=== PATIENT | female | born 1970 | race Caucasian/White ===

== ENCOUNTER 2016-03-04 09:23 | Emergency (ER) | payer OTHER ==
[~2016-03-04] VITALS: Ht 157.5 cm; Wt 56.0 kg
[2016-03-04] MEDS ORDERED: PROAIR RESPICL90 MCG IH (11:42)
[2016-03-04] MEDS ORDERED: VENLAFAXINE H37.5 M3 PO (11:42)
[2016-03-04] MEDS ORDERED: ZOLPIDEM TARTRA10 MG PO (11:42)
[2016-03-04] MEDS ORDERED: MONTELUKAST SOD10 MG PO (11:42)
[2016-03-04] MEDS ORDERED: CLONAZEPAM0.5 MG PO (11:42)
[2016-03-04] MEDS ORDERED: ULTRACET1 TABLET PO (12:29)
[2016-03-04 12:50] VITALS: BP 125/58
== END 2016-03-04 12:45 | disposition home or self-care (01) ==
LOC: EME 09:23
DX: S09.8XXA Other specified injuries of head, initial encounter (principal); S06.0X0A Concussion without loss of consciousness, initial encounter; S16.1XXA Strain of muscle, fascia and tendon at neck level, initial encounter; S60.222A Contusion of left hand, initial encounter; M25.552 Pain in left hip; M25.532 Pain in left wrist; W00.0XXA Fall on same level due to ice and snow, initial encounter; V48.4XXA Person boarding or alighting a car injured in noncollision transport accident, initial encounter
CPT/HCPCS: 72040; 73130; 99281; 99284